=== PATIENT | male | born 1975 | race Caucasian/White ===

== ENCOUNTER 2018-03-03 00:14 | Emergency (ER) | payer MEDICARE, OTHER ==
[2018-03-03 02:07] LABS: ADD MAN DIFF? NO
[2018-03-03 02:09] LABS: BASOPHIL # 0.1 10^3/ul (0.0-0.1); BASOPHILS % 0.8 % (0.0-2.0); EOSINOPHILS # 0.6 10^3/ul (0.0-0.5); EOSINOPHILS % 7.7 % (0.0-7.0); HEMATOCRIT 38.1 % (42.0-52.0); HEMOGLOBIN 13.2 g/dl (14.0-18.0); LYMPHOCYTES # 2.5 10^3/ul (0.8-2.9); LYMPHOCYTES % 34.5 % (15.0-51.0); MEAN CORPUSCULAR HEMOGLOBIN 32.4 pg (29.0-33.0); MEAN CORPUSCULAR HGB CONC 34.6 g/dl (32.0-37.0); MEAN CORPUSCULAR VOLUME 93.6 fl (82.0-101.0); MEAN PLATELET VOLUME 10.7 fl (7.4-10.4); MONOCYTE # 0.9 10^3/ul (0.3-0.9); MONOCYTES % 12.9 % (0.0-11.0); NEUTROPHIL # 3.2 10^3/ul (1.6-7.5); PLATELET COUNT 226 10^3/UL (140-415); RED BLOOD COUNT 4.07 10^6/ul (4.70-6.10); RED CELL DISTRIBUTION WIDTH 12.5 % (11.5-14.5)
[2018-03-03 02:09] LABS: WHITE BLOOD COUNT 7.3 10^3/ul (4.8-10.8)
[2018-03-03 02:25] LABS: LACTIC ACID 1.2 mmol/L (0.5-2.0)
[2018-03-03 03:03] LABS: ALANINE AMINOTRANSFERASE 51 IU/L (13-69); ALBUMIN 3.5 g/dl (3.3-4.9); ALBUMIN/GLOBULIN RATIO 0.87; ALKALINE PHOSPHATASE 52 IU/L (42-121); ANION GAP 11 (8-16); ASPARTATE AMINO TRANSFERASE 65 IU/L (15-46); BILIRUBIN,INDIRECT 0.9 mg/dl (0-1.1); BILIRUBIN,TOTAL 0.9 mg/dl (0.2-1.3); BLOOD UREA NITROGEN 12 mg/dl (7-20); CALCIUM 9.1 mg/dl (8.4-10.2); CARBON DIOXIDE 30 mmol/L (21-31); CHLORIDE 104 mmol/L (97-110); CREATININE 1.08 mg/dl (0.61-1.24); GLUCOSE 104 mg/dl (70-220); POTASSIUM 3.7 mmol/L (3.5-5.1); SODIUM 141 mmol/L (135-144); TOTAL PROTEIN 7.5 g/dl (6.1-8.1)
[2018-03-03 03:12] LABS: B-TYPE NATRIURETIC PEPTIDE 138 PG/ML (0-125)
== END 2018-03-03 05:21 | disposition home or self-care (01) ==
LOC: FTE 00:14
DX: L03.115 Cellulitis of right lower limb (principal); L03.116 Cellulitis of left lower limb; I87.8 Other specified disorders of veins; Z87.891 Personal history of nicotine dependence
CPT/HCPCS: 73590; 80053; 83605; 83880; 85025; 87040; 93970; 99285-25